=== PATIENT | female | born 1960 | race Caucasian/White ===

== ENCOUNTER 2018-01-15 02:25 | Inpatient (IN) | END 2018-01-17 16:45 | disposition home or self-care (01) | DRG 247 ==

== ENCOUNTER 2018-07-24 03:37 | Emergency (ER) | payer MEDICAID ==
[~2018-07-24] VITALS: Ht 162.6 cm; Wt 83.1 kg
[~2018-07-24 03:37] MED LIST: ASPI-817 PO; ATOR20TA65 PO; CLOP75TA28 PO; METO-448 PO
[2018-07-24 03:42] VITALS: Ht 162.6 cm; Wt 83.1 kg
--- NOTE | 2018-07-24 03:51 | ERD ---
ER Documentation Chief Complaint Chief Complaint vomiting/headache since yesterday HPI This 58-year-old female with a prior history of migraine headaches, who presents with a gradual onset headache that is similar to prior migraines. She endorses an episode of vomiting, she denies chest pain or shortness of breath. No fever, no confusion and no neurologic symptoms. ROS All systems reviewed and are negative except as per history of present illness. Medications Home Meds Active Scripts Metoprolol Tartrate* (Lopressor*) 25 Mg Tab, 12.5 MG PO BID, #60 TAB 2 Refills Prov:RAWINNIE,CHRISTY S. 01/17/18 Atorvastatin Calcium (Atorvastatin Calcium) 20 Mg Tablet, 20 MG PO HS, #30 TAB 8 Refills Prov:RAWINNIE,CHRISTY S. 01/17/18 Aspirin* (Aspirin* EC) 81 Mg Tablet.dr, 81 MG PO DAILY, #30 8 Refills Prov:RAWINNIE,CHRISTY S. 01/17/18 Clopidogrel Bisulfate (Clopidogrel) 75 Mg Tablet, 75 MG PO DAILY, #30 TAB 8 Refills Prov:RAWINNIECHRISTY S. 01/17/18 Allergies Allergies: Coded Allergies: No Known Allergy (Unverified , 01/15/18) PMhx/Soc History of Surgery: Yes (Cyst removal 15 years ago) Anesthesia Reaction: No Hx Neurological Disorder: No Hx Respiratory Disorders: No Hx Cardiac Disorders: Yes (hyperlipedemia) Hx Psychiatric Problems: No Hx Miscellaneous Medical Probl: No Hx Alcohol Use: No Hx Substance Use: No Hx Tobacco Use: No Physical Exam Vitals Vital Signs Date Temp Pulse Resp B/P (MAP) Pulse Ox O2 O2 Flow FiO2 Time Delivery Rate 07/24/18 98.0 84 18 134/82 98 03:42 (99) Physical Exam Const: No acute distress Head: Atraumatic Eyes: Normal Conjunctiva ENT: Normal External Ears, Nose and Mouth. Neck: Full range of motion. No meningismus. Resp: Clear to auscultation bilaterally Cardio: Regular rate and rhythm, no murmurs Abd: Soft, non tender, non distended. Normal bowel sounds Skin: No petechiae or rashes Back: No midline or flank tenderness Ext: No cyanosis, or edema Neur: Awake and alert, cranial nerves II through XII intact, normal gait, no cerebellar ataxia. Psych: Normal Mood and Affect Result Diagram: 07/24/18 0459 07/24/18 0459 Results 24 hrs Laboratory Tests Test 07/24/18 04:59 07/24/18 05:28 White Blood Count 10.0 10^3/ul Red Blood Count 4.54 10^6/ul Hemoglobin 13.2 g/dl Hematocrit 38.7 % Mean Corpuscular Volume 85.2 fl Mean Corpuscular Hemoglobin 29.1 pg Mean Corpuscular Hemoglobin Concent 34.1 g/dl Red Cell Distribution Width 11.7 % Platelet Count 226 10^3/UL Mean Platelet Volume 9.9 fl Immature Granulocytes % 0.400 % Neutrophils % 81.5 % Lymphocytes % 11.0 % Monocytes % 5.6 % Eosinophils % 1.0 % Basophils % 0.5 % Nucleated Red Blood Cells % 0.0 /100WBC Immature Granulocytes # 0.040 10^3/ul Neutrophils # 8.2 10^3/ul Lymphocytes # 1.1 10^3/ul Monocytes # 0.6 10^3/ul Eosinophils # 0.1 10^3/ul Basophils # 0.1 10^3/ul Nucleated Red Blood Cells # 0.0 10^3/ul Prothrombin Time 13.0 Sec Prothrombin Time Ratio 1.0 INR International Normalized Ratio 0.97 Activated Partial Thromboplast Time 25.5 Sec Sodium Level 140 mmol/L Potassium Level 3.8 mmol/L Chloride Level 104 mmol/L Carbon Dioxide Level 29 mmol/L Anion Gap 7 Blood Urea Nitrogen 14 mg/dl Creatinine 0.53 mg/dl Est Glomerular Filtrat Rate mL/min > 60 mL/min Glucose Level 139 mg/dl Calcium Level 9.2 mg/dl Total Bilirubin 0.7 mg/dl Direct Bilirubin 0.00 mg/dl Indirect Bilirubin 0.7 mg/dl Aspartate Amino Transf (AST/SGOT) 22 IU/L Alanine Aminotransferase (ALT/SGPT) 31 IU/L Alkaline Phosphatase 94 IU/L Total Protein 7.3 g/dl Albumin 4.1 g/dl Globulin 3.20 g/dl Albumin/Globulin Ratio 1.28 Lipase 64 U/L Bedside Urine pH (LAB) 8.5 Bedside Urine Protein (LAB) Negative Bedside Urine Glucose (UA) Negative Bedside Urine Ketones (LAB) Negative Bedside Urine Blood Trace-lysed Bedside Urine Nitrite (LAB) Negative Bedside Urine Leukocyte Esterase (L Negative Current Medications Medications Dose Sig/Lolis Start Time Status Last (Trade) Ordered Route PRN Stop Time Admin Dose Reason Admin Sodium 1,000 ml @ Q1H STAT 07/24/18 DC 07/24/18 Chloride 1,000 mls/hr IV 04:06 05:16 07/24/18 05:05 10 mg ONCE STAT 07/24/18 DC 07/24/18 Prochlorperaz IV 04:06 05:17 ine 07/24/18 (Compazine 04:08 Inj) Ketorolac 30 mg ONCE STAT 07/24/18 DC 07/24/18 Tromethamine IV 04:06 05:17 (Toradol) 07/24/18 04:08 25 mg ONCE STAT 07/24/18 DC 07/24/18 Diphenhydrami IV 04:06 05:17 ne HCl 07/24/18 (Benadryl) 04:08 Procedures/MDM This 58-year-old female with prior history of migraines who presents with acute on chronic headache. Her headache is very similar to prior migraine episodes, she has no neurologic deficits, and no infection signs or symptoms. I have a very low suspicion for an emergent cause of headache such as subarachnoid hemorrhage, meningitis, or temporal arteritis. The patient was treated with analgesia and expanse improvement in her symptoms, her labs were overall unremarkable, on reassessment, the patient's pain had improved, and she is stable for discharge home. Strict return precautions given. Departure Diagnosis: Primary Impression: Headache Headache type: other headache syndrome Qualified Codes: G44.89 - Other headache syndrome Condition: Stable ELADIO LAFLEUR MD Jul 24, 2018 03:51
[2018-07-24] MEDS ORDERED: PROCHLORPERAZINE 10 MG INJ IV STA (04:06)
[2018-07-24] MEDS ORDERED: KETOROLAC 30 MG INJ IV STA (04:06)
[2018-07-24] MEDS ORDERED: DIPHENHYDRAMINE 50 MG INJ IV STA (04:06)
[2018-07-24] MEDS ORDERED: SOD CHLORIDE 0.9% 1,000 ML IV STA (04:06)
[2018-07-24] MEDS ORDERED: MECL12.574 PO (05:52)
[2018-07-24 05:59] VITALS: BP 156/90; PULSE 72; RESP 18
== END 2018-07-24 06:11 | disposition home or self-care (01) ==
LOC: E/R 03:37
DX: G44.89 Other headache syndrome (principal); R10.84 Generalized abdominal pain; Z79.01 Long term (current) use of anticoagulants; Z79.82 Long term (current) use of aspirin
CPT/HCPCS: 80053; 81003; 83690; 85025; 85610; 85730; J0780; J1200; J1885; J7030; 36415; 96374; 96375

== ENCOUNTER 2018-10-10 15:24 | Emergency (ER) | payer MEDICAID ==
[~2018-10-10] VITALS: Ht 157.5 cm; Wt 79.0 kg
[~2018-10-10 15:24] MED LIST changes: +MECL12.574 PO
[2018-10-10 15:48] VITALS: Ht 157.5 cm; Wt 79.0 kg
[2018-10-10] MEDS ORDERED: morphine 4 MG/ML VIAL IV STA (16:14)
[2018-10-10] MEDS ORDERED: ONDANSETRON 4 MG INJ IV STA (16:14)
[2018-10-10] MEDS ORDERED: SOD CHLORIDE 0.9% 1,000 ML IV STA (16:14)
--- NOTE | 2018-10-10 16:20 | ERD ---
ER Documentation Chief Complaint Chief Complaint AP WITH VOMITING/VERDUGO X 2 DAYS HPI This is a 58-year-old female with a past medical history of hypertension and cardiac arrhythmia on Plavix. The patient indicates that for the past 48 hours she has been experiencing abdominal pain. She states the abdominal pain is persistent. The pain is 8 out of 10 intensity. She indicated that the pain began in the epigastric region began to radiate to the left lower quadrant. The pain did not radiate to her back. She felt lightheaded and dizzy and states she had a bandlike headache. She states this is not the worst headache of her life. She did have multiple episodes of nonbloody nonbilious emesis and this occurred prior to her headache. She states she has been unable to tolerate any oral intake due to the pain. She also states that several hours ago she did have an episode of loose watery stools. She has had no recent hospitalizations or travel. She has no shortness of breath at rest or exertion. She denies any chest pain or pressure. She had no fevers or shaking or chills. She denies any frequency urgency or dysuria. Also denies any recent antibiotic use ROS All systems reviewed and are negative except as per history of present illness. Medications Home Meds Reported Medications Metoprolol Tartrate* (Lopressor*) 25 Mg Tab, 25 MG PO BID, #60 TAB 10/10/18 Aspirin (Low Dose Aspirin) 81 Mg Tablet.dr, 81 MG PO DAILY, #30 TAB 10/10/18 Atorvastatin Calcium* (Atorvastatin Calcium*) 20 Mg Tablet, 20 MG PO QHS, #30 TAB 10/10/18 Clopidogrel Bisulfate (Clopidogrel) 75 Mg Tablet, 75 MG PO DAILY, #30 TAB 10/10/18 Discontinued Scripts Meclizine Hcl* (Antivert*) 12.5 Mg Tab, 12.5 MG PO Q6H PRN for DIZZINESS, #20 TAB Prov:ELADIO LAFLEUR MD 07/24/18 Metoprolol Tartrate* (Lopressor*) 25 Mg Tab, 12.5 MG PO BID, #60 TAB 2 Refills Prov:RASAMANTHA ZHOUEEP S. 01/17/18 Atorvastatin Calcium (Atorvastatin Calcium) 20 Mg Tablet, 20 MG PO HS, #30 TAB 8 Refills Prov:FABIÁN GUERRAP S. 01/17/18 Aspirin* (Aspirin* EC) 81 Mg Tablet.dr, 81 MG PO DAILY, #30 8 Refills Prov:CHRISTY GUERRA S. 01/17/18 Clopidogrel Bisulfate (Clopidogrel) 75 Mg Tablet, 75 MG PO DAILY, #30 TAB 8 Refills Prov:CHRISTY GUERRA. 01/17/18 Allergies Allergies: Coded Allergies: No Known Allergy (Unverified , 10/10/18) PMhx/Soc History of Surgery: Yes (Cyst removal 15 years ago) Anesthesia Reaction: No Hx Neurological Disorder: No Hx Respiratory Disorders: No Hx Cardiac Disorders: Yes (hyperlipidemia, htn, CAD, [place]) Hx Psychiatric Problems: No Hx Miscellaneous Medical Probl: No Hx Alcohol Use: No Hx Substance Use: No Hx Tobacco Use: No Smoking Status: Never smoker Physical Exam Vitals Vital Signs Date Temp Pulse Resp B/P (MAP) Pulse Ox O2 O2 Flow FiO2 Time Delivery Rate 10/10/18 74 17 121/103 20 Room Air 19:04 (109) 10/10/18 79 20 118/84 20 Room Air 16:06 (95) 10/10/18 98.4 77 18 126/83 100 15:48 (97) Physical Exam Constitutional:Well-developed. Well-nourished. Appear to be in discomfort secondary to pain HEENT:Normocephalic. Atraumatic.Pupils were equal round reactive to light. Moist mucous membranes.No tonsillar exudates. Neck: No nuchal rigidity. No lymphadenopathy. No posterior cervical spine tenderness or step-offs. Respiratory: Not using accessory muscles of respiration.Lungs were clear to auscultation bilaterally. No rhonchi. No rales. No wheezing. Cardiovascular: Regular rate regular rhythm.No murmurs. No rubs were appreciated .S1, S2 normal. Distal pulses are palpable 2+ bilaterally. GI: Abdomen was soft. Epigastric tenderness and left lower quadrant tenderness. Non Distended. No pulsatile abdominal masses or bruits. No rebound. No guarding. Bowel sounds were present and normal. Muscle skeletal: Full range of motion of both the upper and lower extremities bilaterally.Normal muscle tone.No assymetrical calf tenderness or swelling. Skin: No petechia, no purpura. No lesions on the palms or the soles of the feet. No maculopapular rash. NEURO: Patient was alert, awake, orientated x3.No facial droop. Gait observed and normal with no ataxia.Speech had regular rate and rhythm. No focal neurological deficits. Result Diagram: 10/10/18 1621 10/10/18 1621 Results 24 hrs Laboratory Tests Test 10/10/18 16:21 White Blood Count 10.1 10^3/ul Red Blood Count 4.79 10^6/ul Hemoglobin 14.1 g/dl Hematocrit 41.6 % Mean Corpuscular Volume 86.8 fl Mean Corpuscular Hemoglobin 29.4 pg Mean Corpuscular Hemoglobin Concent 33.9 g/dl Red Cell Distribution Width 12.4 % Platelet Count 247 10^3/UL Mean Platelet Volume 9.5 fl Immature Granulocytes % 0.500 % Neutrophils % 85.3 % Lymphocytes % 10.2 % Monocytes % 3.4 % Eosinophils % 0.4 % Basophils % 0.2 % Nucleated Red Blood Cells % 0.0 /100WBC Immature Granulocytes # 0.050 10^3/ul Neutrophils # 8.6 10^3/ul Lymphocytes # 1.0 10^3/ul Monocytes # 0.3 10^3/ul Eosinophils # 0.0 10^3/ul Basophils # 0.0 10^3/ul Nucleated Red Blood Cells # 0.0 10^3/ul Prothrombin Time 12.5 Sec Prothrombin Time Ratio 1.0 INR International Normalized Ratio 0.92 Activated Partial Thromboplast Time 26.4 Sec Sodium Level 142 mmol/L Potassium Level 4.4 mmol/L Chloride Level 104 mmol/L Carbon Dioxide Level 28 mmol/L Anion Gap 10 Blood Urea Nitrogen 9 mg/dl Creatinine 0.57 mg/dl Est Glomerular Filtrat Rate mL/min > 60 mL/min Glucose Level 143 mg/dl Calcium Level 9.2 mg/dl Total Bilirubin 0.8 mg/dl Direct Bilirubin 0.00 mg/dl Indirect Bilirubin 0.8 mg/dl Aspartate Amino Transf (AST/SGOT) 27 IU/L Alanine Aminotransferase (ALT/SGPT) 46 IU/L Alkaline Phosphatase 111 IU/L Troponin I < 0.012 ng/ml Total Protein 7.4 g/dl Albumin 4.2 g/dl Globulin 3.20 g/dl Albumin/Globulin Ratio 1.31 Lipase 49 U/L Current Medications Medications Dose Sig/Lolis Start Time Status Last (Trade) Ordered Route PRN Stop Time Admin Dose Reason Admin Sodium 1,000 ml @ Q1H STAT 10/10/18 DC 10/10/18 Chloride 1,000 mls/hr IV 16:14 16:22 10/10/18 17:13 Morphine 4 mg ONCE STAT 10/10/18 DC 10/10/18 Sulfate IV 16:14 16:23 (morphine) 10/10/18 16:15 Ondansetron 4 mg ONCE STAT 10/10/18 DC 10/10/18 HCl (Zofran IV 16:14 16:23 Inj) 10/10/18 16:15 IV Flush 10 ml STK-MED 10/10/18 DC (NS 10 ml) ONCE .ROUTE 16:53 10/10/18 16:54 Sodium 100 ml @ ud STK-MED 10/10/18 DC Chloride ONCE .ROUTE 16:53 10/10/18 16:54 Iohexol 150 ml STK-MED 10/10/18 DC (Omnipaque ONCE .ROUTE 16:53 300mg/ ml) 10/10/18 16:54 Procedures/MDM This patient presented to the emergency department with abdominal pain and was seen and evaluated by myself. My differential diagnosis included but was not limited to abdominal aortic aneurysm, appendicitis, pancreatitis, perforated peptic ulcer, perforated viscus, Boerhaaves syndrome or visceral pain such as diverticulitis, DKA, esophagitis, hepatitis or bowel obstruction. The patient was placed on a cardiac exercise physiologist, continuous pulse oximetry, and IV access was established by nursing staff. The patient was given intravenous morphine Zofran for analgesia control. Her pain had significantly improved. I did feel is necessary to obtain a CT scan of the patient's abdomen which was r eviewed by the radiologist myself and indicated the followin. Mild thickening involve the sigmoid colon and rectum raises concern for proctocolitis which may correlate clinically with diarrhea. 2. Equivocal gallbladder sludge within a phrygian cap without evidence for cholecystitis. 3. Borderline hepatomegaly with hepatic steatosis. 4. Fat-containing umbilical hernia. I did feel the patient's symptoms are able to be treated on an outpatient basis as her pain had improved she was able to tolerate oral intake and there is no evidence of sepsis. The patient will be sent home with Imodium. The patient was discharged home in fair condition. They were instructed to return to the emergency department at any time if there was any worsening of their condition. The patient stated they would follow up with their PCP in the next 24-48 hours to initiate a suitable medication regimen under the care of their PCP as well as to allow their PCP to monitor any drug reactions. The patient was discharged home with prescriptions after they gave informed consent to the new medication. They were also fully informed by myself on the adverse effects and adverse drug interactions in order to provide adequate safeguards to prevent possible adverse reactions to medications. I obtained a 12-lead EKG tracing to rule out for atypical myocardial ischemia. 12 Lead EKG tracing ordered and reviewed by myself showed: 12 Lead EKG tracing ordered and reviewed by myself showed: Normal sinus rhythm of 74 bpm and no arrhythmia. MO interval prolonged in all leads at 212 ms QRS duration normal. No ST segment elevation No ST segment depression. No changes consistent with acute ischemia. Departure Diagnosis: Primary Impression: Proctocolitis Condition: AISLINN Gutierrez MD Oct 10, 2018 16:20
[2018-10-10] MEDS ORDERED: IOHEXOL 300MG/ML 150 ML BTL ONE (16:53)
[2018-10-10] MEDS ORDERED: SOD CHLORIDE 0.9% 100 ML ONE (16:53)
[2018-10-10] MEDS ORDERED: CLOP75TA27 PO (16:54)
[2018-10-10] MEDS ORDERED: ATOR20TA38 PO (16:55)
[2018-10-10] MEDS ORDERED: ASPI81TA52 PO (16:56)
[2018-10-10] MEDS ORDERED: METO-448 PO (16:56)
[2018-10-10] MEDS ORDERED: NAPR-985 PO (19:11)
[2018-10-10] MEDS ORDERED: METR500T PO (19:11)
[2018-10-10] MEDS ORDERED: CIPR500T4 PO (19:11)
[2018-10-10 19:48] VITALS: BP 121/98; PULSE 77; RESP 15
== END 2018-10-10 19:58 | disposition home or self-care (01) ==
LOC: E/R 15:24
DX: K52.82 Eosinophilic colitis (principal); R11.10 Vomiting, unspecified; R40.2142 Coma scale, eyes open, spontaneous, at arrival to emergency department; R40.2362 Coma scale, best motor response, obeys commands, at arrival to emergency department; R40.2252 Coma scale, best verbal response, oriented, at arrival to emergency department; I10 Essential (primary) hypertension; I25.10 Atherosclerotic heart disease of native coronary artery without angina pectoris; I25.2 Old myocardial infarction; Z79.82 Long term (current) use of aspirin; Z79.01 Long term (current) use of anticoagulants
CPT/HCPCS: 74177; 80053; 81001; 83690; 84484; 85025; 85610; 85730; 87086; 93005; 96361; 96374; 96375; J2270; J2405; J7030; Q9967; Z7502; Z7610